=== PATIENT | male | born 1950 | race Caucasian/White ===

== ENCOUNTER 2017-05-19 07:31 | Day surgery (SDC) | payer OTHER ==
[2017-05-19 07:59] VITALS: BMI 23.1
[2017-05-19] MEDS ORDERED: PROPOFOL 20 ML ONE (08:26)
[2017-05-19 09:12] VITALS: TEMP 97.7
[2017-05-19 10:46] VITALS: BP 122/87; PULSE 67
== END 2017-05-19 10:46 | disposition home or self-care (01) ==
LOC: JASU-ENDO 07:31
PROVIDERS: ATTEND Internal Medicine Gastroenterology
PROC: 0DH63UZ Insertion of Feeding Device into Stomach, Percutaneous Approach (ICD-10-PCS; principal; 2017-05-19 08:45)
DX: C76.0 Malignant neoplasm of head, face and neck (principal); K29.60 Other gastritis without bleeding

== ENCOUNTER 2023-12-03 04:53 | Day surgery (SDC) | payer OTHER ==
[2023-12-02 11:19] VITALS: BMI 20.5
[2023-12-03 12:06] VITALS: TEMP 98.3
[2023-12-03 12:43] VITALS: BP 132/77; PULSE 62; RESP 18
== END 2023-12-03 13:03 | disposition home or self-care (01) ==
LOC: JASU-ENDO 04:53
PROVIDERS: ATTEND Internal Medicine Gastroenterology
PROC: 0DBL8ZX Excision of Transverse Colon, Via Natural or Artificial Opening Endoscopic, Diagnostic (ICD-10-PCS; principal; 2023-12-03 08:30)
DX: Z12.11 Encounter for screening for malignant neoplasm of colon (principal); D12.3 Benign neoplasm of transverse colon
CPT/HCPCS: 88305-TC